=== PATIENT | male | born 1995 | race Caucasian/White ===

== ENCOUNTER 2021-11-17 09:17 | Emergency (ER) | payer SELFPAY ==
[~2021-11-17] VITALS: Ht 160 cm; Wt 65.8 kg
[2021-11-17] MEDS ORDERED: Robaxin750 MG PO (12:07)
== END 2021-11-17 12:17 | disposition home or self-care (01) ==
LOC: ER 09:17
DX: G44.209 Tension-type headache, unspecified, not intractable (principal)
CPT/HCPCS: 70450; A9270

== ENCOUNTER → 2024-05-11 | Outpatient (CLI) | payer OTHER ==
[~2024-05-11] MED LIST: Robaxin750 MG PO
[2024-05-11 18:51] LABS: Influenza B, PCR NEGATIVE (NEGATIVE); Resp Syncytial Virus, PCR NEGATIVE (NEGATIVE); SARS-Cov-2 (COVID-19) PCR, MMC NEGATIVE (NEGATIVE)
[2024-05-11 18:55] LABS: Influenza A, PCR POSITIVE (NEGATIVE)
== END ==
LOC: LAB 16:53 → LAB SHORT 16:53
PROVIDERS: Nurse Practitioner Family
DX: R50.9 Fever, unspecified (principal)
CPT/HCPCS: 0241U